=== PATIENT | female | born 1995 | race American Indian/Alaskan Native ===

== ENCOUNTER 2020-03-26 05:59 | Inpatient (IN) | payer MEDICAID ==
[2020-03-26] MEDS: LACTATED RINGERS 1,000 ML IV SCH ×4 (08:25→18:58)
[2020-03-26] MEDS ORDERED: METOCLOPRAMIDE 10 MG/2 ML INJ IV NR ×2 (08:30→17:00)
[2020-03-26] MEDS ORDERED: FAMOTIDINE 20 MG/2 ML INJ IV NR ×2 (08:30→17:00)
[2020-03-26] MEDS ORDERED: BICITRA ORAL LIQD 30ML PO NR ×2 (08:30→17:00)
[2020-03-26 08:33] LABS: Hematocrit 34.3 % (30.3-42.9); Hemoglobin 10.8 gm/dl (10.1-14.3); Mean Corpuscular HGB Conc 32 % (30-34); Mean Corpuscular Volume 76 fl (79-97); Platelet Count 345 K/mm3 (140-440)
[2020-03-26 08:34] LABS: Red Cell Distribution Width 20.1 % (13.2-15.2)
[2020-03-26] MEDS ORDERED: OXYTOCIN 20 UNIT/1000ML DRIP 20 UNITS/1,000 ML BAG IV SCH ×2 (09:00→21:21)
[2020-03-26] MEDS ORDERED: ceFAZolin/Water 2 GM/20 ML 2 GM/20 ML SYRINGE IV NR ×2 (09:00→17:00)
[2020-03-26 09:40] LABS: Band Neutrophils # (Manual) 0.1 K/mm3; Basophils % (Manual) 0 % (0.0-1.8); Eosinophils % (Manual) 0 % (0.0-4.3); Total Cells Counted 100
[2020-03-26 09:41] LABS: Anisocytosis 1+; Hypochromasia 1+; Large Platelets Rare
[2020-03-26 09:42] LABS: Platelet Estimate Consistent w Auto
[2020-03-26] MEDS ORDERED: DEXMEDETOMIDINE 200 MCG/2 ML VIAL IV ONE (16:59)
[2020-03-26] MEDS ORDERED: ONDANSETRON 4 MG/2 ML INJ ONE (16:59)
[2020-03-26] MEDS ORDERED: diphenhydrAMINE 50 MG/ML VIAL IV ONE (17:45)
[2020-03-26] MEDS ORDERED: dexAMETHasone 4 MG/ML VIAL IV ONE (17:45)
[2020-03-26] MEDS ORDERED: KETOROLAC 30 MG/1 ML INJ IV ONE (17:45)
[2020-03-26] MEDS ORDERED: dexAMETHasone 20 MG/5 ML VIAL ONE (17:46)
[2020-03-26] MEDS ORDERED: OXYTOCIN 10 UNIT/1 ML INJ ONE (17:46)
[2020-03-26] MEDS ORDERED: PHENYLEPHRINE/NS 1,000 MCG/10 ML SYRINGE (OR USE) IV ONE (17:46)
[2020-03-26] MEDS ORDERED: diphenhydrAMINE 50 MG/ML VIAL ONE (17:46)
[2020-03-26] MEDS ORDERED: ONDANSETRON 4 MG/2 ML INJ IV PRN ×2 (18:23→21:21)
[2020-03-26] MEDS ORDERED: NALOXONE 0.4 MG/1 ML INJ IV PRN ×2 (18:23→21:21)
[2020-03-26] MEDS ORDERED: PROMETHAZINE 25 MG TAB PO PRN (18:23)
[2020-03-26] MEDS ORDERED: HYDROmorphone 1 MG/1 ML INJ IV PRN (18:23)
[2020-03-26] MEDS ORDERED: PROMETHAZINE 25 MG RECT SUPP PR PRN (18:23)
[2020-03-26] MEDS ORDERED: SIMETHICONE 80 MG CHEW TAB PO PRN (21:21)
[2020-03-26] MEDS ORDERED: IBUPROFEN 800 MG TAB PO PRN (21:21)
[2020-03-26] MEDS ORDERED: MAGNESIUM HYDROXIDE (MOM) ORAL LIQD UDC PO PRN (21:21)
[2020-03-26] MEDS ORDERED: WITCH HAZEL/ GLYCERIN PAD TP PRN (21:21)
[2020-03-26] MEDS ORDERED: LANOLIN/ZINC/DIMETHICONE (LANSINOH) 7 GM TP PRN (21:21)
[2020-03-26] MEDS: KETOROLAC 30 MG/1 ML INJ IV PRN (21:30)
[2020-03-26] MEDS: D5W/LACTATED RINGERS 1,000 ML IV SCH (22:29)
[2020-03-27] MEDS: MORPHINE 4 MG/1 ML INJ IV PRN ×2 (00:15→16:15)
[2020-03-27] MEDS: KETOROLAC 30 MG/1 ML INJ IV PRN ×2 (05:02→11:35)
[2020-03-27] MEDS: D5W/LACTATED RINGERS 1,000 ML IV SCH (05:36)
[2020-03-27 06:35] LABS: Hematocrit 32.6 % (30.3-42.9); Hemoglobin 10.1 gm/dl (10.1-14.3)
[2020-03-27] MEDS: FERROUS SULFATE 325 MG TAB PO SCH (09:14)
[2020-03-27] MEDS: PRENATAL VIT27-FE FUMARATE-FOLIC ACID VIT TAB PO SCH (09:15)
[2020-03-27] MEDS ORDERED: METHYLERGONOVINE MALEATE 0.2 MG/ML VIAL IM ONE ×2 (15:57→16:03)
[2020-03-27] MEDS ORDERED: SODIUM CHLORIDE 0.9% 500 ML 500 ML IV SCH (16:28)
[2020-03-27] MEDS ORDERED: propofoL 200 MG/20 ML VIAL IV ONE (16:32)
[2020-03-27] MEDS ORDERED: SUCCINYLCHOLINE CHLORIDE 200 MG/10 ML INJ MDV ONE (16:33)
[2020-03-27] MEDS ORDERED: LIDOCAINE MPF (2%) 20 MG/1 ML VIAL 5 ML ONE (16:33)
[2020-03-27] MEDS ORDERED: MIDAZOLAM 2 MG/2 ML INJ ONE (16:46)
[2020-03-27] MEDS ORDERED: fentaNYL 100 MCG/2 ML INJ ONE (16:56)
[2020-03-27 17:00] LABS: Hemoglobin 9.5 gm/dl (10.1-14.3)
[2020-03-27] MEDS ORDERED: HYDROmorphone 1 MG/1 ML INJ IV PRN (17:45)
[2020-03-27] MEDS ORDERED: D5W/LACTATED RINGERS 1,000 ML IV SCH (20:44)
[2020-03-27] MEDS ORDERED: WITCH HAZEL/ GLYCERIN PAD TP PRN (20:44)
[2020-03-27] MEDS ORDERED: NALOXONE 0.4 MG/1 ML INJ IV PRN (20:44)
[2020-03-27] MEDS ORDERED: OXYTOCIN 20 UNIT/1000ML DRIP 20 UNITS/1,000 ML BAG IV SCH (20:44)
[2020-03-27] MEDS ORDERED: LANOLIN/ZINC/DIMETHICONE (LANSINOH) 7 GM TP PRN (20:44)
[2020-03-28] MEDS: oxyCODONE /ACETAMINOPHEN 5-325MG TAB PO PRN ×4 (01:24→21:26)
[2020-03-28] MEDS: METHYLERGONOVINE 0.2 MG TABLET PO SCH ×4 (01:28→21:26)
[2020-03-28] MEDS: FERROUS SULFATE 325 MG TAB PO SCH (10:52)
[2020-03-28] MEDS: PRENATAL VIT27-FE FUMARATE-FOLIC ACID VIT TAB PO SCH (10:52)
[2020-03-29] MEDS: METHYLERGONOVINE 0.2 MG TABLET PO SCH (10:47)
[2020-03-29] MEDS: FERROUS SULFATE 325 MG TAB PO SCH (10:47)
[2020-03-29] MEDS: PRENATAL VIT27-FE FUMARATE-FOLIC ACID VIT TAB PO SCH (10:47)
[2020-03-29 15:16] VITALS: BP 116/77
== END 2020-03-29 12:45 | disposition home or self-care (01) | DRG 765 ==
LOC: APU 05:59 → OB 21:19 → LD 03-27 16:29 → OB 03-27 19:56
PROVIDERS: ADMIT Obstetrics & Gynecology; ATTEND Obstetrics & Gynecology
PROC: 10D00Z1 Extraction of Products of Conception, Low, Open Approach (ICD-10-PCS; principal; 2020-03-26)
DX: O34.211 Maternal care for low transverse scar from previous cesarean delivery (principal); O72.1 Other immediate postpartum hemorrhage; Z3A.39 39 weeks gestation of pregnancy; Z37.0 Single live birth
CPT/HCPCS: 36415; 85007; 85014; 85018; 85025; 86592; 86850; 86900; 86901; 88304; 88305; 88307; G0378; J0330; J0690; J1100; J1200; J1885; J2210; J2250; J2270; J2370; J2405; J2590; J2704; J2765; J3010; J3490; J7120; J7121